=== PATIENT | female | born 1985 | race Two or more races ===

== ENCOUNTER 2016-08-30 09:38 | Emergency (ER) | payer SELFPAY ==
[2016-08-30 09:42] VITALS: BP 126/83; BMI 26.5
[2016-08-30 10:31] LABS: BILIRUBIN,URINE NEGATIVE (NEGATIVE); BLOOD/HEMOGLOBIN,URINE 1+ (NEGATIVE); GLUCOSE, URINE NEGATIVE (NEGATIVE); KETONES,URINE NEGATIVE (NEGATIVE); LEUKOCYTE ESTERASE ,URINE 1+ (NEGATIVE); NITRITES,URINE NEGATIVE (NEGATIVE); PROTEIN,URINE 1+ (NEGATIVE); UROBILINOGEN,URINE NORMAL (NORMAL)
[2016-08-30 10:38] LABS: APPEARANCE,URINE SLIGHTLY HAZY (CLEAR); BACTERIA,URINE TRACE /HPF (NEGATIVE); COLOR,URINE YELLOW (YELLOW); RBC,URINE 0 - 3 /HPF (NEGATIVE); SQUAMOUS EPITHELIAL CELL,UR FEW /HPF (NEGATIVE)
[2016-08-30 10:39] LABS: AMORPHOUS SEDIMENT,UR TRACE /HPF (NEGATIVE); MUCUS,URINE MODERATE /HPF (NEGATIVE)
--- NOTE | 2016-08-30 10:53 | RAD ---
HISTORY: Abdominal pain Study: KUB Comparison: None available Findings: Evaluation of the abdomen demonstrates a normal bowel gas pattern. No pathological soft tissue mass or calcification can be observed. The bony structures are grossly intact. IMPRESSION: 1. No evidence for acute abdominal pathology identified. Reported By:
== END 2016-08-30 11:39 | disposition home or self-care (01) ==
LOC: ER 09:53
DX: R10.84 Generalized abdominal pain (principal)
CPT/HCPCS: 74000; 81001; 99282